=== PATIENT | female | born 1950 | race African-American/Black ===

== ENCOUNTER 2018-05-23 16:29 | Inpatient (IN) | payer BC, OTHER ==
[2018-05-23 17:21] VITALS: BMI 26.2
--- NOTE | 2018-05-23 18:52 | HP ---
CIWA Score - CIWA Score Nausea/Vomitin Muscle Tremors: 3 Anxiety: 5 Agitation: 4-Moderately Restless Paroxysmal Sweats: 2 Orientation: 1-Uncertain about Date Tacttile Disturbances: 0-None Auditory Disturbances: 0-None Visual Disturbances: 0-None Headache: 0-None Present CIWA-Ar Total Score: 18 Admission ROS BHS - HPI Chief Complaint: "I am so fearful for my eyes, it's making me drink everyday, I am so afraid I need help" Allergies/Adverse Reactions: Allergies Allergy/AdvReac Type Severity Reaction Status Date / Time Penicillins Allergy Verified 05/23/18 18:11 History of Present Illness: 68 y/o female with a history of "drinking all my life" presents today for alcohol detox. States she just recently was told that she has glaucoma which is making her drink more. Pt has had numerous detox, denies any remarkable period of sobriety. Hx: Sarcodosis of the lung, Glaucoma, HTN, asthma Denies any psychiatric dx Denies Past nor current SI Exam Limitations: No Limitations - Ebola screening Have you traveled outside of the country in the last 21 days: No (N) Have you had contact with anyone from an Ebola affected area: No Have you been sick,other than usual withdrawal symptoms: No Do you have a fever: No - Review of Systems Constitutional: Loss of Appetite, Night Sweats, Changes in sleep EENT: reports: Cataracts, Blurred Vision (Hx of glaucoma) Respiratory: reports: No Symptoms reported Cardiac: reports: No Symptoms Reported GI: reports: Diarrhea : reports: No Symptoms Reported Musculoskeletal: reports: No Symptoms Reported Integumentary: reports: No Symptoms Reported Neuro: reports: No Symptoms reported Endocrine: reports: No Symptoms Reported Hematology: reports: No Symptoms Reported Psychiatric: reports: Anxious, Depressed Other Systems: Reviewed and Negative Patient History - Patient Medical History Hx Anemia: Yes Hx Asthma: Yes (On meds) Hx Chronic Obstructive Pulmonary Disease (COPD): No Hx Cancer: No Hx Cardiac Disorders: No Hx Congestive Heart Failure: No Hx Hypertension: Yes (Not on meds) Hx Hypercholesterolemia: No Hx Pacemaker: No HX Cerebrovascular Accident: No Hx Seizures: No Hx Dementia: No Hx Diabetes: No Hx Gastrointestinal Disorders: No Hx Liver Disease: No Hx Genitourinary Disorders: No Hx Sexually Transmitted Disorders: No Hx Renal Disease (ESRD): No Hx Thyroid Disease: No Hx Human Immunodeficiency Virus (HIV): No (Declines testing) Hx Hepatitis C: No Hx Depression: No (Sad affect) Hx Suicide Attempt: No (Denies) Hx Bipolar Disorder: No Hx Schizophrenia: No - Patient Surgical History Past Surgical History: Yes Hx Neurologic Surgery: No Hx Cataract Extraction: No Hx Cardiac Surgery: No Hx Lung Surgery: No Hx Breast Surgery: No Hx Breast Biopsy: No Hx Abdominal Surgery: No Hx Appendectomy: No Hx Cholecystectomy: No Hx Genitourinary Surgery: No Hx Section: No Hx Orthopedic Surgery: No Hx Hysterectomy: No Other Surgical History: c - section x 28 yrs ago Anesthesia Reaction: No - PPD History Previous Implant?: Yes Documented Results: Negative w/o proof Implanted On Prior R Admission?: No PPD to be Administered?: Yes - Reproductive History Patient is a Female of Child Bearing Age (11 -55 yrs old): No - Smoking Cessation Smoking history: Never smoked Have you smoked in the past 12 months: No - Substance & Tx. History Hx Alcohol Use: Yes Hx Substance Use: No Substance Use Type: Alcohol Hx Substance Use Treatment: Yes - Substances Abused Alcohol Route: Oral Frequency: Daily Amount used: 1 PINT [place]ODKA Age of first use: 11 Date of Last Use: 05/23/18 Family Disease History - Family Disease History Family Disease History: Heart Disease: Father (, stroke, schizo), Mother ( stroke), Other: Brother ( - schizo) Admission Physical Exam BHS - Vital Signs Vital Signs: Vital Signs - 24 hr 05/23/18 17:17 Temperature 97.8 F Pulse Rate 90 Respiratory 18 Rate Blood Pressure 129/68 - Physical General Appearance: Yes: Anxious, Other (teary eyed) HEENTM: Yes: Other (has glasses on "for my glaucoma") Respiratory: Yes: Lungs Clear, No Respiratory Distress, No Accessory Muscle Use Neck: Yes: Trachea in good position Breast: Yes: Breast Exam Deferred Cardiology: Yes: Regular Rate Abdominal: Yes: Non Tender, Soft Genitourinary: Yes: Within Normal Limits Back: Yes: Within Normal Limits, Normal Inspection Musculoskeletal: Yes: full range of Motion, Gait Steady Extremities: Yes: Normal Capillary Refill, Normal Inspection Neurological: Yes: Fully Oriented, Other (teary) Integumentary: Yes: Within Normal Limits Lymphatic: Yes: Within Normal Limits - Diagnostic (1) Uncomplicated alcohol dependence Current Visit: Yes Status: Acute (2) Sad mood Current Visit: Yes Status: Acute (3) Asthma Current Visit: Yes Status: Acute (4) HTN (hypertension) Current Visit: Yes Status: Suspected (5) Personal history of sarcoidosis Current Visit: No Status: Chronic (6) Anxiety about health Current Visit: Yes Status: Chronic Cleared for Admission [facility] - Detox or Rehab [facility] Level of Care: Medically Managed Detox Regimen/Protocol: Librium [facility] Breath Alcohol Content Breath Alcohol Content: 0.021 Urine Pregancy Test - Result Urine Test Results: Negative- NO Line Present Urine Drug Screen - Results Drug Screen Negative: Yes
[2018-05-23] MEDS ORDERED: IBUPROFEN 400 MG TABLET (FP) PO PRN (19:12)
[2018-05-23] MEDS ORDERED: MAGNESIUM HYDROX 2400MG/30ML ORAL SUSPENSION 30 ML CUP PO PRN (19:12)
[2018-05-23] MEDS ORDERED: guaiFENesin/D-METHORPHAN HB 10 ML UNIT-DOSE CUPS PO PRN (19:12)
[2018-05-23] MEDS ORDERED: MAG HYDROX/AL HYDROX/SIMETH 30 ML UNIT-DOSE CUP PO PRN (19:12)
[2018-05-23] MEDS ORDERED: MAGNESIUM CITRATE 300 ML BOTTLE PO PRN (19:12)
[2018-05-23] MEDS ORDERED: MENTHOL/PHENOL 1 EACH UD MM PRN (19:12)
[2018-05-23] MEDS ORDERED: LOPERAMIDE HCL 2 MG CAPSULE PO PRN (19:12)
[2018-05-23] MEDS ORDERED: P-EPHED 60MG/TRIPROLIDI 2.5MG TABLET PO PRN (19:12)
[2018-05-23] MEDS ORDERED: chlordiazePOXIDE HCL 25 MG CAPSULE PO PRN (19:12)
[2018-05-23] MEDS ORDERED: MELATONIN 5 MG TABLETS PO PRN (22:00)
[2018-05-23] MEDS: chlordiazePOXIDE HCL 25 MG CAPSULE PO SCH (22:22)
[2018-05-23] MEDS: THIAMINE HCL 100 MG TABLET (FP) PO SCH (22:22)
[2018-05-24] MEDS: chlordiazePOXIDE HCL 25 MG CAPSULE PO SCH ×4 (05:16→23:01)
[2018-05-24 09:55] LABS: HEMATOCRIT 38.2 % (32.4-45.2); HEMOGLOBIN 12.1 GM/dL (10.7-15.3); MCH 26.7 pg (25.7-33.7); MCHC 31.8 g/dl (32.0-36.0); MEAN CELL VOLUME 84.1 fl (80-96); MEAN PLT VOLUME 9.8 fl (7.5-11.1); PLATELET COUNT 186 K/MM3 (134-434); RBC 4.55 M/mm3 (3.60-5.2); RDW 15.6 % (11.6-15.6); WHITE BLOOD COUNT 3.1 K/mm3 (4.0-10.0)
[2018-05-24] MEDS ORDERED: PATIENT'S OWN MEDICATION (NON-FORMULARY) (Brinzolamide/Brimonidine Tart [Simbrinza 1%-0.2% OP SCH (10:00)
[2018-05-24] MEDS ORDERED: TIMOLOL MALEATE 0.5% GFS OPHTHALMIC SOLN 5 ML BOTTLE OU SCH ×2 (10:00→22:00)
--- NOTE | 2018-05-24 10:12 | PN ---
S CIWA - CIWA Score Nausea/Vomitin-Mild Nausea/No Vomiting Muscle Tremors: 3 Anxiety: 3 Agitation: 3 Paroxysmal Sweats: 1-Minimal Palms Moist Orientation: 1-Uncertain about Date Tacttile Disturbances: 1-Very Mild Itch/Numbness Auditory Disturbances: 0-None Visual Disturbances: 0-None Headache: 1-Very Mild CIWA-Ar Total Score: 14 BHS Progress Note (SOAP) Subjective: sweat tremor restlessness reported has glaucoma and brought in her glaucoma medication with her stored in her property with the security nurse informed to fetch the medication due to keisha's does not carry on of her glacucoma medication as NF Objective: 05/24/18 10:17 Vital Signs Temperature 97.9 F 05/24/18 09:32 Pulse Rate 64 05/24/18 09:32 Respiratory Rate 16 05/24/18 09:32 Blood Pressure 134/68 05/24/18 09:32 O2 Sat by Pulse Oximetry (%) Laboratory Last Values WBC 3.1 K/mm3 (4.0-10.0) L 05/24/18 07:30 RBC 4.55 M/mm3 (3.60-5.2) 05/24/18 07:30 Hgb 12.1 GM/dL (10.7-15.3) 05/24/18 07:30 Hct 38.2 % (32.4-45.2) 05/24/18 07:30 MCV 84.1 fl (80-96) 05/24/18 07:30 MCH 26.7 pg (25.7-33.7) 05/24/18 07:30 MCHC 31.8 g/dl (32.0-36.0) L 05/24/18 07:30 RDW 15.6 % (11.6-15.6) 05/24/18 07:30 Plt Count 186 K/MM3 (134-434) 05/24/18 07:30 MPV 9.8 fl (7.5-11.1) 05/24/18 07:30 lab noted Assessment: 05/24/18 10:17 withdrawal sx Plan: continue detox
[2018-05-24] MEDS: PRENATAL VITAMINS W/ FOLIC ACID TABLET (FP) PO SCH (10:20)
[2018-05-24 10:29] LABS: URINE APPEARANCE CLEAR; URINE BILIRUBIN NEGATIVE (<2.0 mg/dL); URINE COLOR LTYELLOW; URINE GLUCOSE (UA) NEGATIVE (NEGATIVE); URINE KETONE TRACE (NEGATIVE); URINE LEUK ESTERASE NEGATIVE (NEGATIVE); URINE NITRITE NEGATIVE (NEGATIVE); URINE PROTEIN NEGATIVE (NEGATIVE); URINE UROBILINOGEN NEGATIVE mg/dL (0.2-1.0)
[2018-05-24 10:31] LABS: ALBUMIN 3.3 g/dl (3.4-5.0); ALK PHOS 76 U/L (45-117); ANION GAP 7 MMOL/L (8-16); BILIRUBIN,TOTAL 0.5 mg/dL (0.2-1); BLOOD UREA NITROGEN 13 mg/dL (7-18); CALCIUM 8.4 mg/dL (8.5-10.1); CHLORIDE 100 mmol/L (98-107); CO2 31 mmol/L (21-32); CREATININE 0.8 mg/dL (0.55-1.3); GLUCOSE,RANDOM 95 mg/dL (74-106); POTASSIUM 3.8 mmol/L (3.5-5.1); SGOT/AST 34 U/L (15-37); SGPT/ALT 22 U/L (13-61); SODIUM 138 mmol/L (136-145); TOT PROT 6.9 g/dl (6.4-8.2)
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
--- NOTE | 2018-05-24 11:12 | EKG ---
Test Reason : Blood Pressure : / mmHG Vent. Rate : 083 BPM Atrial Rate : 083 BPM P-R Int : 182 ms QRS Dur : 086 ms QT Int : 356 ms P-R-T Axes : 069 021 036 degrees QTc Int : 418 ms NORMAL SINUS RHYTHM POSSIBLE LEFT ATRIAL ENLARGEMENT T WAVE ABNORMALITY, CONSIDER ANTERIOR ISCHEMIA ABNORMAL ECG NO PREVIOUS ECGS AVAILABLE Confirmed by BETHANY OCONNOR MD ([id number]) on 05/24/2018 11:11:52 AM Referred By: Confirmed By:BETHANY OCONNOR MD
[2018-05-24] MEDS: THIAMINE HCL 100 MG TABLET (FP) PO SCH (23:01)
[2018-05-24] MEDS: ZOLPIDEM TARTRATE 5 MG TABLET PO PRN (23:01)
[2018-05-25] MEDS: chlordiazePOXIDE HCL 25 MG CAPSULE PO SCH ×3 (06:20→17:55)
[2018-05-25] MEDS ORDERED: TIMOLOL MALEATE 0.5% GFS OPHTHALMIC SOLN 5 ML BOTTLE OU SCH (10:00)
[2018-05-25] MEDS: PRENATAL VITAMINS W/ FOLIC ACID TABLET (FP) PO SCH (10:32)
[2018-05-25 11:13] LABS: BASO % 1.1 % (0-2.0); EOS % 5.5 % (0-4.5); HEMATOCRIT 38.6 % (32.4-45.2); HEMOGLOBIN 12.3 GM/dL (10.7-15.3); LYMPH % 33.6 % (8-40); MCH 27.2 pg (25.7-33.7); MCHC 31.7 g/dl (32.0-36.0); MEAN CELL VOLUME 85.8 fl (80-96); MEAN PLT VOLUME 10.8 fl (7.5-11.1); MONO % 14.1 % (3.8-10.2); NEUT % 45.7 % (42.8-82.8); PLATELET COUNT 164 K/MM3 (134-434); RDW 16.1 % (11.6-15.6); WHITE BLOOD COUNT 2.8 K/mm3 (4.0-10.0)
--- NOTE | 2018-05-25 11:28 | PN ---
S CIWA - CIWA Score Nausea/Vomitin-No Nausea/No Vomiting Muscle Tremors: 3 Anxiety: 1-Mildly Anxious Agitation: 2 Paroxysmal Sweats: 1-Minimal Palms Moist Orientation: 0-Oriented Tacttile Disturbances: 0-None Auditory Disturbances: 0-None Visual Disturbances: 0-None Headache: 0-None Present CIWA-Ar Total Score: 7 BHS Progress Note (SOAP) Subjective: patient bring in her eye medications but no label no name tag attach with the medication the radio script writer call the [facility] pharmacy that "too early to refill" encourage the patient to bring in encourage the patient to call her eye doctor for new prescription patient anxiously discuss about taking off from work wants to return to work today Objective: 05/25/18 11:39 Vital Signs Temperature 97.4 F L 05/25/18 09:26 Pulse Rate 75 05/25/18 09:26 Respiratory Rate 16 05/25/18 09:26 Blood Pressure 113/70 05/25/18 09:26 O2 Sat by Pulse Oximetry (%) Laboratory Last Values WBC 2.8 K/mm3 (4.0-10.0) L 05/25/18 07:20 RBC 4.50 M/mm3 (3.60-5.2) 05/25/18 07:20 Hgb 12.3 GM/dL (10.7-15.3) 05/25/18 07:20 Hct 38.6 % (32.4-45.2) 05/25/18 07:20 MCV 85.8 fl (80-96) 05/25/18 07:20 MCH 27.2 pg (25.7-33.7) 05/25/18 07:20 MCHC 31.7 g/dl (32.0-36.0) L 05/25/18 07:20 RDW 16.1 % (11.6-15.6) H 05/25/18 07:20 Plt Count 164 K/MM3 (134-434) 05/25/18 07:20 MPV 10.8 fl (7.5-11.1) D 05/25/18 07:20 Absolute Neuts (auto) 1.3 K/mm3 (1.5-8.0) L 05/25/18 07:20 Neutrophils % 45.7 % (42.8-82.8) 05/25/18 07:20 Lymphocytes % 33.6 % (8-40) 05/25/18 07:20 Monocytes % 14.1 % (3.8-10.2) H 05/25/18 07:20 Eosinophils % 5.5 % (0-4.5) H 05/25/18 07:20 Basophils % 1.1 % (0-2.0) 05/25/18 07:20 Nucleated RBC % 0 % (0-0) 05/25/18 07:20 Sodium 138 mmol/L (136-145) 05/24/18 07:30 Potassium 3.8 mmol/L (3.5-5.1) 05/24/18 07:30 Chloride 100 mmol/L (98-107) 05/24/18 07:30 Carbon Dioxide 31 mmol/L (21-32) 05/24/18 07:30 Anion Gap 7 MMOL/L (8-16) L 05/24/18 07:30 BUN 13 mg/dL (7-18) 05/24/18 07:30 Creatinine 0.8 mg/dL (0.55-1.3) 05/24/18 07:30 Creat Clearance w eGFR > 60 (>60) 05/24/18 07:30 Random Glucose 95 mg/dL (74-106) 05/24/18 07:30 Calcium 8.4 mg/dL (8.5-10.1) L 05/24/18 07:30 Total Bilirubin 0.5 mg/dL (0.2-1) 05/24/18 07:30 AST 34 U/L (15-37) 05/24/18 07:30 ALT 22 U/L (13-61) 05/24/18 07:30 Alkaline Phosphatase 76 U/L (45-117) 05/24/18 07:30 Total Protein 6.9 g/dl (6.4-8.2) 05/24/18 07:30 Albumin 3.3 g/dl (3.4-5.0) L 05/24/18 07:30 Urine Color Ltyellow 05/24/18 07:30 Urine Appearance Clear 05/24/18 07:30 Urine pH 7.0 (5.0-8.0) 05/24/18 07:30 Ur Specific [place] 1.016 (1.010-1.035) 05/24/18 07:30 Urine Protein Negative (NEGATIVE) 05/24/18 07:30 Urine Glucose (UA) Negative (NEGATIVE) 05/24/18 07:30 Urine Ketones Trace (NEGATIVE) H 05/24/18 07:30 Urine Blood Negative (NEGATIVE) 05/24/18 07:30 Urine Nitrite Negative (NEGATIVE) 05/24/18 07:30 Urine Bilirubin Negative (<2.0 mg/dL) 05/24/18 07:30 Urine Urobilinogen Negative mg/dL (0.2-1.0) 05/24/18 07:30 Ur Leukocyte Esterase Negative (NEGATIVE) 05/24/18 07:30 RPR Titer Nonreactive (NONREACTIVE) 05/24/18 07:30 lab noted 05/25/18 11:51 patient has long history of lung sarcoidosis follow up with dr cox Assessment: 05/25/18 11:52 withdrawal sx Plan: continue detox
--- NOTE | 2018-05-25 17:31 | PN ---
S Progress Note Note: Spoke w/ [facility] and patient has not had a Timolol eye gtt refill in over 1 year. This medication will not be give. Patient has been taking Simbrinza opth drops- 1 drop both eyes BID. This eye drop is non-formulary but substitutions will be made as per discussion with [facility] pharmacy.
[2018-05-25] MEDS: DORZOLAMIDE 2% HCL OPHTHALMIC SOLUTION 10 ML BOTTLE OU SCH (22:19)
[2018-05-25] MEDS: BRIMONIDINE TARTRATE 0.2% OPHTHALMIC 5 ML BOTTLE OU SCH (22:19)
[2018-05-25] MEDS: chlordiazePOXIDE 5 MG CAPSULE PO SCH (22:22)
[2018-05-25] MEDS: THIAMINE HCL 100 MG TABLET (FP) PO SCH (22:22)
[2018-05-25] MEDS: ZOLPIDEM TARTRATE 5 MG TABLET PO PRN (23:20)
[2018-05-26] MEDS: chlordiazePOXIDE 5 MG CAPSULE PO SCH ×3 (05:38→18:12)
[2018-05-26] MEDS: ACETAMINOPHEN 325 MG TABLET (FP) PO PRN ×2 (06:16→22:10)
[2018-05-26] MEDS: PRENATAL VITAMINS W/ FOLIC ACID TABLET (FP) PO SCH (10:20)
[2018-05-26] MEDS: BRIMONIDINE TARTRATE 0.2% OPHTHALMIC 5 ML BOTTLE OU SCH ×2 (10:21→22:12)
[2018-05-26] MEDS: DORZOLAMIDE 2% HCL OPHTHALMIC SOLUTION 10 ML BOTTLE OU SCH ×2 (10:21→22:12)
[2018-05-26] MEDS ORDERED: COLLOIDAL OATMEAL 1 BAR EACH TP PRN (10:38)
--- NOTE | 2018-05-26 12:03 | PN ---
[facility] Progress Note Note: PATIENT CONTINUES WITH DETOX REGIMEN. C/O DRY SKIN. Vital Signs Temperature 97.8 F 05/26/18 09:39 Pulse Rate 57 L 05/26/18 09:39 Respiratory Rate 19 05/26/18 09:39 Blood Pressure 115/61 05/26/18 09:39 O2 Sat by Pulse Oximetry (%) Laboratory Tests 05/24/18 05/24/18 05/24/18 07:30 07:30 07:30 WBC 3.1 L RBC 4.55 Hgb 12.1 Hct 38.2 MCV 84.1 MCH 26.7 MCHC 31.8 L RDW 15.6 Plt Count 186 MPV 9.8 Absolute Neuts (auto) Neutrophils % Lymphocytes % Monocytes % Eosinophils % Basophils % Nucleated RBC % Sodium 138 Potassium 3.8 Chloride 100 Carbon Dioxide 31 Anion Gap 7 L BUN 13 Creatinine 0.8 Creat Clearance w eGFR > 60 Random Glucose 95 Calcium 8.4 L Total Bilirubin 0.5 AST 34 ALT 22 Alkaline Phosphatase 76 Total Protein 6.9 Albumin 3.3 L Urine Color Urine Appearance Urine pH Ur Specific [place] Urine Protein Urine Glucose (UA) Urine Ketones Urine Blood Urine Nitrite Urine Bilirubin Urine Urobilinogen Ur Leukocyte Esterase RPR Titer Nonreactive 05/24/18 05/25/18 07:30 07:20 WBC 2.8 L RBC 4.50 Hgb 12.3 Hct 38.6 MCV 85.8 MCH 27.2 MCHC 31.7 L RDW 16.1 H Plt Count 164 MPV 10.8 D Absolute Neuts (auto) 1.3 L Neutrophils % 45.7 Lymphocytes % 33.6 Monocytes % 14.1 H Eosinophils % 5.5 H Basophils % 1.1 Nucleated RBC % 0 Sodium Potassium Chloride Carbon Dioxide Anion Gap BUN Creatinine Creat Clearance w eGFR Random Glucose Calcium Total Bilirubin AST ALT Alkaline Phosphatase Total Protein Albumin Urine Color Ltyellow Urine Appearance Clear Urine pH 7.0 Ur Specific [place] 1.016 Urine Protein Negative Urine Glucose (UA) Negative Urine Ketones Trace H Urine Blood Negative Urine Nitrite Negative Urine Bilirubin Negative Urine Urobilinogen Negative Ur Leukocyte Esterase Negative RPR Titer SKIN WARM AND DRY CAR S1S2 RESP CTA BL EXT FULL ROM ALERT AND ORIENTED X 3 A/P WITHDRAWAL SX DRY SKIN CONTINUE DETOX ENCOURAGE ORAL FLUIDS CONTINUE TO MONITOR ADD AVEENO SOAP
[2018-05-26] MEDS: THIAMINE HCL 100 MG TABLET (FP) PO SCH (22:11)
[2018-05-26] MEDS: chlordiazePOXIDE HCL 10 MG CAPSULE PO SCH (23:30)
[2018-05-27] MEDS: chlordiazePOXIDE HCL 10 MG CAPSULE PO SCH (06:15)
--- NOTE | 2018-05-27 08:37 | PN ---
BHS Progress Note (SOAP) Subjective: I feel better Objective: 05/27/18 08:35 Vital Signs Temperature 97.3 F L 05/27/18 07:17 Pulse Rate 64 05/27/18 07:17 Respiratory Rate 16 05/27/18 07:17 Blood Pressure 121/66 05/27/18 07:17 O2 Sat by Pulse Oximetry (%) Laboratory Tests 05/24/18 05/24/18 05/24/18 07:30 07:30 07:30 WBC 3.1 L RBC 4.55 Hgb 12.1 Hct 38.2 MCV 84.1 MCH 26.7 MCHC 31.8 L RDW 15.6 Plt Count 186 MPV 9.8 Absolute Neuts (auto) Neutrophils % Lymphocytes % Monocytes % Eosinophils % Basophils % Nucleated RBC % Sodium 138 Potassium 3.8 Chloride 100 Carbon Dioxide 31 Anion Gap 7 L BUN 13 Creatinine 0.8 Creat Clearance w eGFR > 60 Random Glucose 95 Calcium 8.4 L Total Bilirubin 0.5 AST 34 ALT 22 Alkaline Phosphatase 76 Total Protein 6.9 Albumin 3.3 L Urine Color Urine Appearance Urine pH Ur Specific [place] Urine Protein Urine Glucose (UA) Urine Ketones Urine Blood Urine Nitrite Urine Bilirubin Urine Urobilinogen Ur Leukocyte Esterase RPR Titer Nonreactive 05/24/18 05/25/18 07:30 07:20 WBC 2.8 L RBC 4.50 Hgb 12.3 Hct 38.6 MCV 85.8 MCH 27.2 MCHC 31.7 L RDW 16.1 H Plt Count 164 MPV 10.8 D Absolute Neuts (auto) 1.3 L Neutrophils % 45.7 Lymphocytes % 33.6 Monocytes % 14.1 H Eosinophils % 5.5 H Basophils % 1.1 Nucleated RBC % 0 Sodium Potassium Chloride Carbon Dioxide Anion Gap BUN Creatinine Creat Clearance w eGFR Random Glucose Calcium Total Bilirubin AST ALT Alkaline Phosphatase Total Protein Albumin Urine Color Ltyellow Urine Appearance Clear Urine pH 7.0 Ur Specific [place] 1.016 Urine Protein Negative Urine Glucose (UA) Negative Urine Ketones Trace H Urine Blood Negative Urine Nitrite Negative Urine Bilirubin Negative Urine Urobilinogen Negative Ur Leukocyte Esterase Negative RPR Titer pt aox3 in nad ambulating Assessment: 05/27/18 08:36 withdrawal sx's improved detox completed Plan: d/c today to home .
--- NOTE | 2018-05-27 08:40 | DS ---
[facility] Detox Discharge Summary Admission Date: 05/23/18 Discharge Date: 05/27/18 - History Present History: Alcohol Dependence - Physical Exam Results Vital Signs: Vital Signs Temperature 97.3 F L 05/27/18 07:17 Pulse Rate 64 05/27/18 07:17 Respiratory Rate 16 05/27/18 07:17 Blood Pressure 121/66 05/27/18 07:17 O2 Sat by Pulse Oximetry (%) - Treatment Hospital Course: Detox Protocol Followed, Detoxed Safely, Responded well, Discharged Condition Good - Medication Discharge Medications: Ambulatory Orders Brinzolamide/Brimonidine Tart [Simbrinza 1%-0.2% Eye Drops] 2.5 ml OP DAILY #1 drops.susp 05/26/18 Timolol Maleate 0.5% Gfs [Timoptic Xe 0.5%] 1 drop OU DAILY #1 bottle 05/26/18 - Diagnosis (1) Asthma Current Visit: Yes Status: Chronic Qualifiers: Asthma severity: mild (2) Sad mood Current Visit: Yes Status: Chronic (3) Sarcoidosis of lung Current Visit: Yes Status: Chronic (4) Uncomplicated alcohol dependence Current Visit: Yes Status: Chronic (5) HTN (hypertension) Current Visit: Yes Status: Suspected (6) Personal history of sarcoidosis Current Visit: No Status: Chronic - AMA Did Patient Leave Against Medical Advice: No
[2018-05-27] MEDS: PRENATAL VITAMINS W/ FOLIC ACID TABLET (FP) PO SCH (09:04)
[2018-05-27] MEDS: BRIMONIDINE TARTRATE 0.2% OPHTHALMIC 5 ML BOTTLE OU SCH (09:06)
[2018-05-27] MEDS: DORZOLAMIDE 2% HCL OPHTHALMIC SOLUTION 10 ML BOTTLE OU SCH (09:06)
[2018-05-27 09:27] VITALS: BP 144/56; PULSE 67; TEMP 97.7
== END 2018-05-27 10:24 | disposition home or self-care (01) | DRG 897 ==
LOC: YASAS 16:29 → Y6N 18:14
PROC: HZ2ZZZZ Detoxification Services for Substance Abuse Treatment (ICD-10-PCS; principal; 2018-05-23)
DX: F10.230 Alcohol dependence with withdrawal, uncomplicated (principal); F10.282 Alcohol dependence with alcohol-induced sleep disorder; F39 Unspecified mood [affective] disorder; F41.9 Anxiety disorder, unspecified; I10 Essential (primary) hypertension; J45.909 Unspecified asthma, uncomplicated; L98.8 Other specified disorders of the skin and subcutaneous tissue; H40.9 Unspecified glaucoma; Z87.09 Personal history of other diseases of the respiratory system; Z88.0 Allergy status to penicillin
CPT/HCPCS: 36415; 80053; 81003; 85025; 85027; 86593; 93005; 93010